=== PATIENT | male | born 1945 | race Caucasian/White ===

== ENCOUNTER 2016-10-13 01:19 | Observation (INO) | payer BC ==
[2016-10-13] VITALS (9 sets, daily range): BP systolic 106–131; BP diastolic 57–88; PULSE 60–66; TEMP 36.6–37.1; O2SAT 94–96; Ht 167.6 cm; Wt 75.3 kg
[~2016-10-13] VITALS: Ht 167.6 cm; Wt 75.3 kg
[~2016-10-13 01:19] MED LIST: ASPI81TA28 PO; CIPR-255 PO; LIVALO PO; ROLAIDS PO; SILD100T PO; WARF5TAB7 PO
--- NOTE | 2016-10-13 01:45 | EMERGENCY ROOM VISIT NOTE ---
History Report prepared by Trip: Lluvia Smith Under the Supervision of: Dr. Shilo Lindsey M.D. First contact with patient: 01:31 Chief Complaint: FEVER Stated Complaint: CHILLS,FEVER,NAUSEA History of Present Illness The patient is a 71 year old male who presents to the Emergency Room with complaints of an intermittent fever that began a few days ago. The patient states that he goes from burning up one minute to being chilled the next minute. He states that he last took Tylenol around 1600. The patient states that he has an artificial heart valve, and states that he could not hear it this evening that alarmed him. He notes a history of atrial fibrillation, noting that he is on Coumadin. The patent states that he last had his INR checked last week and states that he recently missed one dosage of his Coumadin , so he doubled up one day. The patient denies any cough, runny nose, sore throat, urinary burning, or swelling to his legs. The patient's states that he had sick contacts that had gastritis a few weeks ago, but denies the patient having any similar symptoms. Source of History: patient, spouse/significant other () Onset: few days ago Position: other (global) Quality: other (fever) Timing: intermittent Associated Symptoms: + chills, No cough, No sorethroat, No urinary symptoms Note: Associated Symptoms: burning up Review of Systems See HPI for pertinent positives & negatives. A total of 10 systems reviewed and were otherwise negative. Past Medical & Surgical Medical Problems: (1) BPH (benign prostatic hypertrophy) with urinary obstruction (2) Heart valve problem Family History Diabetes mellitus FHx: cancer FHx: heart disease Hypertension Social History Smoking Status: Never Smoker Smokeless Tobacco Use: No Alcohol Use: none Marital Status: Housing Status: lives with significant other Occupation Status: retired Current/Historical Medications Scheduled Aspirin (Aspirin Ec), 81 MG PO QPM Sildenafil Citrate (Viagra), 100 MG PO PRN Warfarin Sod (Jantoven), 7.5 MG PO MWF Warfarin Sod (Jantoven), 5 MG PO sun,tue,thur,sat [Livalo], 4 MG PO QPM Allergies Coded Allergies: BEE STING (Verified Allergy, Unknown, LIP SWELLING (SITE OF BEE STING), 10/13/16) Physical Exam Vital Signs Date Time Temp Pulse Resp B/P Pulse Ox O2 Delivery O2 Flow Rate FiO2 10/13/16 02:12 73 18 106/59 10/13/16 02:06 68 10/13/16 01:25 37.2 72 18 144/85 93 Room Air Physical Exam GENERAL: Patient is anxious appearing, in no acute distress. HEENT: No acute trauma, normocephalic atraumatic, mucous membranes moist, no nasal congestion, no scleral icterus. NECK: No stridor, no adenopathy, no meningismus, trachea is midline. LUNGS: No dyspnea. Clear to auscultation and equal bilaterally. No wheeze, no rhonchi. HEART: Metallic click and an irregular heart beat. No murmurs, rubs, gallops appreciated. ABDOMEN: Soft, nontender, bowel sounds positive, no masses appreciated, no peritonitis. BACK: No midline tenderness, no CVA tenderness EXTREMITIES: Normal motion all extremities, no cyanosis, no edema. NEUROLOGIC: Alert and oriented, no acute motor or sensory deficits, no focal weakness, cranial nerves grossly intact. SKIN: No rash, no jaundice, no diaphoresis. Medical Decision & Procedures ER Provider Diagnostic Interpretation: X ray results are stated below per my interpretation: Chest: 1 view: No infiltrate, no effusion, normal cardiac border. Similar to previous chest x-ray. Laboratory Results 10/13/16 02:00 Red Blood Count 4.55, Mean Corpuscular Volume 89.2, Mean Corpuscular Hemoglobin 31.2, Mean Corpuscular Hemoglobin Concent 35.0, Mean Platelet Volume 10.4, Neutrophils (%) (Auto) 89.5, Lymphocytes (%) (Auto) 3.1, Monocytes (%) (Auto) 6.7, Eosinophils (%) (Auto) 0.3, Basophils (%) (Auto) 0.3, Neutrophils # (Auto) 6.94, Lymphocytes # (Auto) 0.24, Monocytes # (Auto) 0.52, Eosinophils # (Auto) 0.02, Basophils # (Auto) 0.02 10/13/16 02:00 Test 10/13/16 02:00 10/13/16 02:04 10/13/16 02:40 White Blood Count 7.75 K/uL (4.8-10.8) Red Blood Count 4.55 M/uL (4.7-6.1) Hemoglobin 14.2 g/dL (14.0-18.0) Hematocrit 40.6 % (42-52) Mean Corpuscular Volume 89.2 fL (80-100) Mean Corpuscular Hemoglobin 31.2 pg (25-34) Mean Corpuscular Hemoglobin Concent 35.0 g/dl (32-36) Platelet Count 228 K/uL (130-400) Mean Platelet Volume 10.4 fL (7.4-10.4) Neutrophils (%) (Auto) 89.5 % Lymphocytes (%) (Auto) 3.1 % Monocytes (%) (Auto) 6.7 % Eosinophils (%) (Auto) 0.3 % Basophils (%) (Auto) 0.3 % Neutrophils # (Auto) 6.94 K/uL (1.4-6.5) Lymphocytes # (Auto) 0.24 K/uL (1.2-3.4) Monocytes # (Auto) 0.52 K/uL (0.11-0.59) Eosinophils # (Auto) 0.02 K/uL (0-0.5) Basophils # (Auto) 0.02 K/uL (0-0.2) RDW Standard Deviation 43.6 fL (36.4-46.3) RDW Coefficient of Variation 13.4 % (11.5-14.5) Immature Granulocyte % (Auto) 0.1 % Immature Granulocyte # (Auto) 0.01 K/uL (0.00-0.02) Prothrombin Time 19.1 SECONDS (9.0-12.0) Prothromb Time International Ratio 1.7 (0.9-1.1) Activated Partial Thromboplast Time 36.6 SECONDS (21.0-31.0) Partial Thromboplastin Ratio 1.4 Anion Gap 12.0 mmol/L (3-11) Est Creatinine Clear Calc Drug Dose 52.4 ml/min Estimated GFR () 64.5 Estimated GFR (Non- 55.7 BUN/Creatinine Ratio 16.9 (10-20) Calcium Level 8.0 mg/dl (8.5-10.1) Magnesium Level 2.0 mg/dl (1.8-2.4) Total Bilirubin 0.5 mg/dl (0.2-1) Direct Bilirubin 0.1 mg/dl (0-0.2) Aspartate Amino Transf (AST/SGOT) 26 U/L (15-37) Alanine Aminotransferase (ALT/SGPT) 37 U/L (12-78) Alkaline Phosphatase 52 U/L (45-117) Total Creatine Kinase 127 U/L (39-308) Creatine Kinase MB 0.5 ng/ml (0.5-3.6) Creatine Kinase MB Ratio 0.4 (0-3.0) Troponin I 0.019 ng/ml (0-0.045) C-Reactive Protein 5.32 mg/dl (0-0.29) Total Protein 6.7 gm/dl (6.4-8.2) Albumin 3.4 gm/dl (3.4-5.0) Bedside Lactic Acid Venous 2.73 mmol/L (0.90-1.70) Urine Color YELLOW Urine Appearance CLEAR (CLEAR) Urine pH 5.0 (4.5-7.5) Urine Specific [place] 1.031 (1.000-1.030) Urine Protein TRACE (NEG) Urine Glucose (UA) 2+ (NEG) Urine Ketones TRACE (NEG) Urine Occult Blood 2+ (NEG) Urine Nitrite NEG (NEG) Urine Bilirubin NEG (NEG) Urine Urobilinogen NEG (NEG) Urine Leukocyte Esterase SMALL (NEG) Urine WBC (Auto) 10-30 /hpf (0-5) Urine RBC (Auto) 5-10 /hpf (0-4) Urine Hyaline Casts (Auto) 5-10 /lpf (0-5) Urine Epithelial Cells (Auto) 10-20 /lpf (0-5) Urine Bacteria (Auto) NEG (NEG) Laboratory results as reviewed by me. Medications Administered Medications (Trade) Dose Ordered Sig/Benjy Route Start Time Stop Time Status Last Admin Dose Admin Sodium Chloride (Nss 1000ml) 1,000 ml @ 999 mls/hr Q1H1M STAT IV 10/13/16 02:38 10/13/16 03:38 DC 10/13/16 02:59 999 MLS/HR Piperacillin Sod/ Tazobactam Sod (Zosyn Iv) 4.5 gm NOW STAT IV 10/13/16 03:06 10/13/16 03:07 DC 10/13/16 03:20 4.5 GM ECG Indication: other Rate (beats per minute): 75 Rhythm: sinus rhythm Findings: PAC, no acute ischemic change ED Course 0133: The patient was evaluated in room A3. A complete history and physical exam was performed. 0238: Ordered Sodium Chloride 1000 ml @ 999 mls/hr IV. 0303: I reevaluated the patient and he is resting comfortably. I discussed the exam findings with him and I discussed the treatment plan. He verbalized complete understanding and agreement. He is going to be evaluated for further treatment. 0306: Ordered Vancomycin HCl 1 gm IV, Zosyn IV 4.5 gm IV. 0307: I discussed the patients case with Master Cho. He is going to evaluate the patient for further treatment. Medical Decision Differential: Viral, Pharyngitis, Cellulitis, Pneumonia, Influenza, Meningitis, Sepsis, Bacteremia, UTI/Pyelonephritis, Endocrine, Toxicologic, amongst other pathologies entertained. 71 yr old male arrives for evaluation of rigors prior to arrival along with report of not being able to hear his aortic valve. Admits missing a dose of coumadin recently as well. Had TURP about one month ago though denies pelvic pain, urinary symptoms nor bowel symptoms. UA is very concerning for UTI. Abdomen is soft non-tender. He has elevated Lactic acid, CRP, and glucose consistent with early sepsis. Given 1 L NSS, though hold on full 30ml/kg as he has stable vitals. Empiric abx for uro-sepsis given. He furthermore has low INR and with decreased sound of valve there is obvious concern that it is clotted somewhat. No stroke symptoms. Will need to come in for further evaluation and treatment. Consults Time Called: [phone] Consulting Physician: Master Cho Returned Call: [phone] I discussed the patients case with Master Cho. He is going to evaluate the patient for further treatment. Impression Primary Impression: Sepsis Additional Impressions: Urinary tract infection Subtherapeutic international normalized ratio (INR) Scribe Attestation The scribe's documentation has been prepared under my direction and personally reviewed by me in its entirety. I confirm that the note above accurately reflects all work, treatment, procedures, and medical decision making performed by me. Departure Information Dispostion Being Evaluated By Hospitalist Red Hayden M.D. (PCP) Problem Qualifiers Primary Impression: Sepsis Sepsis type: sepsis due to unspecified organism Qualified Codes: A41.9 - Sepsis, unspecified organism Additional Impressions: Urinary tract infection Urinary tract infection type: site unspecified Hematuria presence: without hematuria Qualified Codes: N39.0 - Urinary tract infection, site not specified
[2016-10-13 02:25] LABS: BASO % 0.3 %; BASO ABS # 0.02 K/uL (0-0.2); COMPLETE YES; EOS % 0.3 %; HEMATOCRIT 40.6 % (42-52); IG% 0.1 %; LYMPH % 3.1 %; LYMPH ABS # 0.24 K/uL (1.2-3.4); MEAN CELL VOLUME 89.2 fL (80-100); MEAN CORPUSCULAR HEMOGLOBIN 31.2 pg (25-34); MEAN PLATELET VOLUME 10.4 fL (7.4-10.4); MONO % 6.7 %; NEUT % 89.5 %; PLATELET COUNT 228 K/uL (130-400); RED BLOOD COUNT 4.55 M/uL (4.7-6.1); WHITE BLOOD COUNT 7.75 K/uL (4.8-10.8)
[2016-10-13 02:38] LABS: INR 1.7 (0.9-1.1); PROTHROMBIN TIME (PATIENT) 19.1 SECONDS (9.0-12.0)
[2016-10-13] MEDS ORDERED: SODIUM CHLORIDE 0.9% 1000ML 1,000 ML IV STA (02:38)
[2016-10-13 02:48] LABS: BUN/CREATININE RATIO 16.9 (10-20); CREATININE 1.3 mg/dl (0.60-1.40); POTASSIUM 3.8 mmol/L (3.5-5.1)
[2016-10-13 02:54] LABS: CKMB/CK RATIO 0.4 (0-3.0)
[2016-10-13 02:57] LABS: URINE APPEARANCE CLEAR (CLEAR); URINE BILIRUBIN NEG (NEG); URINE COLOR YELLOW; URINE NITRITE NEG (NEG); URINE SPECIFIC GRAVITY 1.031 (1.000-1.030); UROBILINOGEN NEG (NEG); ZZUR CULT IF INDIC CLEAN CATCH YES
[2016-10-13 03:00] LABS: MANUAL MICROSCOPIC REQUIRED? NO; REVIEW REQ? NO
[2016-10-13] MEDS ORDERED: PIPERACILLIN/TAZOBACTAM 4.5 GM/100ML D5W IV STA (03:06)
[2016-10-13] MEDS ORDERED: VANCOMYCIN 1GM/270ML NSS IV STA (03:06)
[2016-10-13 03:08] LABS: C-REACTIVE PROTEIN 5.32 mg/dl (0-0.29)
[2016-10-13 03:46] LABS: PARTIAL THROMBOPLASTIN RATIO 1.4
[2016-10-13] MEDS ORDERED: WARFARIN SOD 5 MG TAB PO ONE (04:00)
[2016-10-13] MEDS ORDERED: NITROGLYCERIN 0.4 MG SL PER TAB CHARGE SL PRN (04:15)
[2016-10-13] MEDS ORDERED: MoRPHine SULFATE 4 MG/ML 1 ML CARP\\VIAL IV PRN (04:15)
[2016-10-13] MEDS ORDERED: LORAZEPAM 2 MG/ML 1 ML VIAL IV PRN (04:15)
[2016-10-13] MEDS ORDERED: ONDANSETRON INJ 2 MG/ML 2 ML VIAL IV PRN (04:15)
[2016-10-13] MEDS ORDERED: TRAMADOL HCL 50 MG TAB PO PRN (04:15)
[2016-10-13] MEDS ORDERED: ACETAMINOPHEN 325 MG TAB PO PRN (04:15)
[2016-10-13] MEDS ORDERED: CALCIUM GLUCONATE 10% 1,000 MG in SODIUM CHLORIDE 0.9% 50ML 50 ML IV STA (04:25)
[2016-10-13] MEDS ORDERED: HEPARIN IV LOW DOSE NO BOLUS SCH (04:25)
[2016-10-13] MEDS ORDERED: NSS + 20MEQ KCL 1000ML 1,000 ML IV ONE (04:30)
[2016-10-13] MEDS ORDERED: WARFARIN SOD 7.5 MG TAB PO STA (04:30)
[2016-10-13] MEDS ORDERED: LORAZEPAM INJ 0.5 MG in SYRINGE 0.75 ML IV PRN (04:45)
--- NOTE | 2016-10-13 05:41 | Progress Note ---
Internal Med Progress Note Date of Service: Oct 13, 2016. Provider Documentation: Made aware by RN of px request to transfer to [facility] service. Px anxious about px insurance paying for [facility] physician services. Case d/w Dr. Zhang ([facility] resident physician engineer conductor) who returned my page for Dr. Rios [facility] center medical director). Vital Signs: Date Time Temp Pulse Resp B/P Pulse Ox O2 Delivery O2 Flow Rate FiO2 10/13/16 05:47 36.8 64 18 106/57 94 Room Air 10/13/16 04:58 36.8 64 18 106/57 94 10/13/16 03:57 72 18 110/58 94 10/13/16 02:12 73 18 106/59 10/13/16 02:06 68 10/13/16 01:25 37.2 72 18 144/85 93 Room Air Lab Results: Results Past 24 Hours Test 10/13/16 02:00 10/13/16 02:04 10/13/16 02:40 10/13/16 05:18 Range/Units White Blood Count 7.75 4.8-10.8 K/uL Red Blood Count 4.55 4.7-6.1 M/uL Hemoglobin 14.2 14.0-18.0 g/dL Hematocrit 40.6 42-52 % Mean Corpuscular Volume 89.2 80-100 fL Mean Corpuscular Hemoglobin 31.2 25-34 pg Mean Corpuscular Hemoglobin Concent 35.0 32-36 g/dl Platelet Count 228 130-400 K/uL Mean Platelet Volume 10.4 7.4-10.4 fL Neutrophils (%) (Auto) 89.5 % Lymphocytes (%) (Auto) 3.1 % Monocytes (%) (Auto) 6.7 % Eosinophils (%) (Auto) 0.3 % Basophils (%) (Auto) 0.3 % Neutrophils # (Auto) 6.94 1.4-6.5 K/uL Lymphocytes # (Auto) 0.24 1.2-3.4 K/uL Monocytes # (Auto) 0.52 0.11-0.59 K/uL Eosinophils # (Auto) 0.02 0-0.5 K/uL Basophils # (Auto) 0.02 0-0.2 K/uL RDW Standard Deviation 43.6 36.4-46.3 fL RDW Coefficient of Variation 13.4 11.5-14.5 % Immature Granulocyte % (Auto) 0.1 % Immature Granulocyte # (Auto) 0.01 0.00-0.02 K/uL Prothrombin Time 19.1 9.0-12.0 SECONDS Prothromb Time International Ratio 1.7 0.9-1.1 Activated Partial Thromboplast Time 36.6 21.0-31.0 SECONDS Partial Thromboplastin Ratio 1.4 Sodium Level 138 136-145 mmol/L Potassium Level 3.8 3.5-5.1 mmol/L Chloride Level 103 98-107 mmol/L Carbon Dioxide Level 23 21-32 mmol/L Anion Gap 12.0 3-11 mmol/L Blood Urea Nitrogen 22 7-18 mg/dl Creatinine 1.30 0.60-1.40 mg/dl Est Creatinine Clear Calc Drug Dose 52.4 ml/min Estimated GFR () 64.5 Estimated GFR (Non- 55.7 BUN/Creatinine Ratio 16.9 10-20 Random Glucose 227 70-99 mg/dl Estimated Average Glucose 103 mg/dl Hemoglobin A1c 5.2 4.5-5.6 % Calcium Level 8.0 8.5-10.1 mg/dl Magnesium Level 2.0 1.8-2.4 mg/dl Total Bilirubin 0.5 0.2-1 mg/dl Direct Bilirubin 0.1 0-0.2 mg/dl Aspartate Amino Transf (AST/SGOT) 26 15-37 U/L Alanine Aminotransferase (ALT/SGPT) 37 12-78 U/L Alkaline Phosphatase 52 45-117 U/L Total Creatine Kinase 127 39-308 U/L Creatine Kinase MB 0.5 0.5-3.6 ng/ml Creatine Kinase MB Ratio 0.4 0-3.0 Troponin I 0.019 0-0.045 ng/ml C-Reactive Protein 5.32 0-0.29 mg/dl Total Protein 6.7 6.4-8.2 gm/dl Albumin 3.4 3.4-5.0 gm/dl Bedside Lactic Acid Venous 2.73 0.90-1.70 mmol/L Urine Color YELLOW Urine Appearance CLEAR CLEAR Urine pH 5.0 4.5-7.5 Urine Specific [place] 1.031 1.000-1.030 Urine Protein TRACE NEG Urine Glucose (UA) 2+ NEG Urine Ketones TRACE NEG Urine Occult Blood 2+ NEG Urine Nitrite NEG NEG Urine Bilirubin NEG NEG Urine Urobilinogen NEG NEG Urine Leukocyte Esterase SMALL NEG Urine WBC (Auto) 10-30 0-5 /hpf Urine RBC (Auto) 5-10 0-4 /hpf Urine Hyaline Casts (Auto) 5-10 0-5 /lpf Urine Epithelial Cells (Auto) 10-20 0-5 /lpf Urine Bacteria (Auto) NEG NEG Lactic Acid Level 1.0 0.4-2.0 mmol/L Microbiology Results 10/13/16 Blood Culture, Received Pending 10/13/16 Blood Culture, Received Pending 10/13/16 Urine Culture, Received Pending
[2016-10-13] MEDS ORDERED: IV FLUIDS COMPLETED PRN (05:45)
[2016-10-13] MEDS ORDERED: HEPARIN 25,000 UNIT/500ML D5W 500 ML IV PRN (05:45)
--- NOTE | 2016-10-13 06:19 | HISTORY & PHYSICAL EXAMINATION ---
DATE OF ADMISSION: 10/13/2016 PRIMARY CARE DOCTOR: Dr. Hammer. Hx obtained from px and records. CHIEF COMPLAINT: Fever. HISTORY OF PRESENT ILLNESS: Medical history significant for bicuspid aortic valve status post mechanical AVR , on Coumadin, CVA, BPH status post surgery. Recent confinement August 2016 for TURP for BPH under Urology service. In the last 2 weeks, the patient noted heartbeat going "up and down." In the last few days, patient noted intermittent fever and chills, fever 103 at one point. No chest pain, no shortness of breath. No cough symptoms. No bladder sx. "viral illness in the family" as per Last night, before he went to sleep, he noticed that he "could not hear his mechanical valve click as much." At the Emergency Room, px given Zosyn for possible sepsis. MEDICAL HISTORY: As above. SURGERIES: Aortic valve replacement, urologic procedure. HOME MEDICATIONS: Include aspirin, Coumadin, Livalo, Viagra. ALLERGIES: BEE STING. FAMILY HISTORY: Diabetes. PERSONAL AND SOCIAL HISTORY: Nonsmoker, no chronic intake of alcoholic beverages. REVIEW OF SYSTEMS: As per HPI, all other ROS negative. PHYSICAL EXAMINATION: VITAL SIGNS: Blood pressure was noted to be 105/69, pulse rate 70, RR 18, temp 37.2, sats 98 on room air. GENERAL: Noted to be slightly anxious, no respiratory distress. SKIN: Normal color. HEENT: [place] palpebral conjunctivae. Dry mucosa. NECK: No JVD. Supple. CHEST: Clear to auscultation. HEART: RRR, mechanical click noted. ABDOMEN: Soft, nontender. EXTREMITIES: No LE edema/tenderness noted. NEUROLOGIC: No gross focality. LABS: Hemoglobin was 14.3, hematocrit 40.6, white cell count 7.7, platelets 228. Sodium 136, potassium 3.8, chloride 103, CO2 of 23, BUN 22, creatinine 1.3, glucose of 227, POC lactic acid was 2.73. INR was 1.7. EKG normal sinus rhythm, septal infarct. T-wave flattening in the inferior leads. Chest x-ray, atelectasis. UA, trace protein, trace ketones, occult blood, wbcs positive, hyaline cast. epith cells ASSESSMENT: 1. Fever/chills at home possible etio : clinical dehydration viral illness ? complicated UTI (hx BPH sp surgery), patient denies urinary sx ? infective endocarditis (hx mechanical AVR, 2009; px worried about "usual valve clicK" being inaudible to him Patient is not septic. 2. History of bicuspid mechanical aortic valve on Coumadin. 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 hx CVA as per records. 4. Hyperglycemia, rule out diabetes. PLAN: Observation PCU mainly for heart valve concerns. 2D echo, Cardiology consult (Dr. Wu of [facility] [place] per patient request) RE mechanical AVR concerns IV heparin while INR subtx on Coumadin IVF, ff lactic acid Follow CS, IV ceftriaxone for possible UTI Check hemoglobin A1c. may need ISS pending result DVT prophylaxis. IV Heparin-Coumadin bridge tx Full code. MTDD
[2016-10-13 06:51] LABS: ESTIMATED AVERAGE GLUCOSE 103 mg/dl; HA1C FLAG Normal (Normal)
--- NOTE | 2016-10-13 06:55 | DIAGNOSTIC IMAGING REPORT ---
CHEST ONE VIEW PORTABLE CLINICAL HISTORY: fever COMPARISON STUDY: 08/16/2016 FINDINGS: The heart is borderline enlarged. There are postsurgical changes of a midline sternotomy and valvular replacement. There is no failure. There is no focal pulmonary consolidation. There are no pleural effusions.[ IMPRESSION: No active disease in the chest. Electronically signed by: Mayito Lemus M.D. 10/13/2016 6:53 AM Dictated Date/Time: 10/13/2016 6:53 AM
[2016-10-13] MEDS: CEFTRIAXONE SOD INJ 1 GM in DEXTROSE 5% ADD-VANTAGE 50ML 50 ML IV SCH (08:42)
--- NOTE | 2016-10-13 13:01 | Hospitalist Progress Note ---
Hospitalist Progress Note Date of Service Oct 13, 2016. Subjective Pt evaluation today including: conversation w/ patient, physical exam, chart review, lab review, review of studies, review of inpatient medication list Patient had no acute issues overnight Patient denies any fevers or chills Constitutional: No fever Eyes: No worsening of vision ENT: No hearing loss Respiratory: No cough, No shortness of breath Cardiovascular: No chest pain, No edema Abdomen: No constipation, No diarrhea, No pain, No vomiting Musculoskeletal: No joint pain Male : No dysuria Neurologic: No memory loss Psychiatric: No depression symptoms Heme: No abnormal bleeding/bruising Endo: No fatigue Medications Current Inpatient Medications Medications (Trade) Dose Ordered Sig/Benjy Route Start Time Stop Time Status Last Admin Dose Admin Warfarin Sodium 5 mg 5 mg DAILY@16 PO 10/14/16 16:00 11/13/16 15:59 Potassium Chloride/Sodium Chloride (Nss + 20meq KCl 1000ml) 1,000 ml @ 100 mls/hr Q10H ONCE IV 10/13/16 04:30 10/13/16 14:29 10/13/16 06:19 100 MLS/HR Acetaminophen (Tylenol Tab) 650 mg Q4H PRN PO 10/13/16 04:15 11/12/16 04:14 Nitroglycerin (Nitrostat Tab) 0.4 mg UD PRN SL 10/13/16 04:15 11/12/16 04:14 Ondansetron HCl (Zofran Inj) 4 mg Q6H PRN IV 10/13/16 04:15 11/12/16 04:14 Lorazepam (Ativan Inj) 0.5 mg Q4H PRN IV 10/13/16 04:15 11/12/16 04:14 Tramadol HCl (Ultram Tab) 25 mg Q6H PRN PO 10/13/16 04:15 11/12/16 04:14 Morphine Sulfate 4 mg 4 mg Q3H PRN IV 10/13/16 04:15 10/27/16 04:14 Ceftriaxone Sodium/Dextrose (Rocephin Inj/ Dextrose Add-[place] 50ML) 50 ml @ 100 mls/hr Q24H IV 10/13/16 08:00 10/23/16 07:59 10/13/16 08:42 100 MLS/HR Aspirin 81 mg 81 mg QPM PO 10/13/16 21:00 11/12/16 20:59 Lorazepam/Syringe (Ativan Inj/ Syringe) 1 ml @ 1 mls/min Q4H PRN IV 10/13/16 04:45 11/12/16 04:44 Miscellaneous 1 ea 1 ea PRN PRN N/A 10/13/16 05:45 10/13/17 05:44 Heparin Sodium/ Dextrose (Heparin 25,000 Unit/500ml D5W) 500 ml @ 17 mls/hr Q24H PRN IV 10/13/16 05:45 11/12/16 05:44 10/13/16 06:30 17 MLS/HR Miscellaneous Information (Order Awaiting Action) 1 ea QS N/A 10/13/16 08:00 11/12/16 07:59 Objective Vital Signs Date Time Temp Pulse Resp B/P Pulse Ox O2 Delivery O2 Flow Rate FiO2 10/13/16 11:26 36.6 60 16 113/71 94 Room Air 10/13/16 08:00 96 Room Air 10/13/16 07:30 37.1 63 16 106/63 96 Room Air 10/13/16 05:47 36.8 64 18 106/57 94 Room Air 10/13/16 04:58 36.8 64 18 106/57 94 10/13/16 03:57 72 18 110/58 94 10/13/16 02:12 73 18 106/59 10/13/16 02:06 68 10/13/16 01:25 37.2 72 18 144/85 93 Room Air Physical Exam General Appearance: WD/WN, no apparent distress Eyes: normal inspection ENT: normal ENT inspection Neck: supple Respiratory/Chest: chest non-tender, lungs clear Cardiovascular: regular rate, rhythm, no edema Abdomen: normal bowel sounds, non tender, soft Extremities: normal range of motion, non-tender Neurologic/Psychiatric: back tufter II-XII nml as tested, no motor/sensory deficits, alert, oriented x 3 Skin: normal color, warm/dry Lymphatic: no adenopathy Laboratory Results Last 24 Hours Test 10/13/16 02:00 10/13/16 02:04 10/13/16 02:40 10/13/16 05:18 White Blood Count 7.75 K/uL Red Blood Count 4.55 M/uL Hemoglobin 14.2 g/dL Hematocrit 40.6 % Mean Corpuscular Volume 89.2 fL Mean Corpuscular Hemoglobin 31.2 pg Mean Corpuscular Hemoglobin Concent 35.0 g/dl Platelet Count 228 K/uL Mean Platelet Volume 10.4 fL Neutrophils (%) (Auto) 89.5 % Lymphocytes (%) (Auto) 3.1 % Monocytes (%) (Auto) 6.7 % Eosinophils (%) (Auto) 0.3 % Basophils (%) (Auto) 0.3 % Neutrophils # (Auto) 6.94 K/uL Lymphocytes # (Auto) 0.24 K/uL Monocytes # (Auto) 0.52 K/uL Eosinophils # (Auto) 0.02 K/uL Basophils # (Auto) 0.02 K/uL RDW Standard Deviation 43.6 fL RDW Coefficient of Variation 13.4 % Immature Granulocyte % (Auto) 0.1 % Immature Granulocyte # (Auto) 0.01 K/uL Prothrombin Time 19.1 SECONDS Prothromb Time International Ratio 1.7 Activated Partial Thromboplast Time 36.6 SECONDS Partial Thromboplastin Ratio 1.4 Sodium Level 138 mmol/L Potassium Level 3.8 mmol/L Chloride Level 103 mmol/L Carbon Dioxide Level 23 mmol/L Anion Gap 12.0 mmol/L Blood Urea Nitrogen 22 mg/dl Creatinine 1.30 mg/dl Est Creatinine Clear Calc Drug Dose 52.4 ml/min Estimated GFR () 64.5 Estimated GFR (Non- 55.7 BUN/Creatinine Ratio 16.9 Random Glucose 227 mg/dl Estimated Average Glucose 103 mg/dl Hemoglobin A1c 5.2 % Calcium Level 8.0 mg/dl Magnesium Level 2.0 mg/dl Total Bilirubin 0.5 mg/dl Direct Bilirubin 0.1 mg/dl Aspartate Amino Transf (AST/SGOT) 26 U/L Alanine Aminotransferase (ALT/SGPT) 37 U/L Alkaline Phosphatase 52 U/L Total Creatine Kinase 127 U/L Creatine Kinase MB 0.5 ng/ml Creatine Kinase MB Ratio 0.4 Troponin I 0.019 ng/ml C-Reactive Protein 5.32 mg/dl Total Protein 6.7 gm/dl Albumin 3.4 gm/dl Bedside Lactic Acid Venous 2.73 mmol/L Urine Color YELLOW Urine Appearance CLEAR Urine pH 5.0 Urine Specific [place] 1.031 Urine Protein TRACE Urine Glucose (UA) 2+ Urine Ketones TRACE Urine Occult Blood 2+ Urine Nitrite NEG Urine Bilirubin NEG Urine Urobilinogen NEG Urine Leukocyte Esterase SMALL Urine WBC (Auto) 10-30 /hpf Urine RBC (Auto) 5-10 /hpf Urine Hyaline Casts (Auto) 5-10 /lpf Urine Epithelial Cells (Auto) 10-20 /lpf Urine Bacteria (Auto) NEG Lactic Acid Level 1.0 mmol/L Test 10/13/16 11:34 Activated Partial Thromboplast Time 51.3 SECONDS Partial Thromboplastin Ratio 2.0 Assessment and Plan Patient is a 71 y.o.M who presented to the hospital with fevers and chills Fevers - 2/2 to UTI? - blood and urine culture pending - cont IVF hydration ?UTI - continue ceftriaxone - await urine culture speciation Mechanical Aortic Valve replacement - INR subtherapeutic - start coumadin 7.5 mg/heparin drip - echocardiograph pending PPx- heparin Full Code
[2016-10-13] MEDS ORDERED: WARFARIN SOD 5 MG TAB PO SCH (16:00)
[2016-10-13] MEDS ORDERED: WARFARIN SOD 7.5 MG TAB PO SCH (16:00)
[2016-10-13 16:54] LABS: URINE APPEARANCE CLEAR (CLEAR); URINE BILIRUBIN NEG (NEG); URINE COLOR YELLOW; URINE EPITHELIAL CELL AUTO 0-5 /lpf (0-5); URINE NITRITE NEG (NEG); URINE PH 6.5 (4.5-7.5); URINE SPECIFIC GRAVITY 1.003 (1.000-1.030); UROBILINOGEN NEG (NEG)
[2016-10-13 16:55] LABS: MANUAL MICROSCOPIC REQUIRED? NO; REVIEW REQ? NO
[2016-10-13] MEDS ORDERED: LIVALO 4 MG PO SCH (21:00)
[2016-10-13] MEDS ORDERED: ASPIRIN 81 MG ECTAB PO SCH (21:00)
--- NOTE | 2016-10-14 00:32 | CARDIOLOGY CONSULTATION ---
DATE OF CONSULTATION: 10/13/2016 CONSULTATION REQUESTED BY: Dr. Wood. REASON FOR CONSULTATION: Fevers, chills, mechanical aortic valve. HISTORY OF PRESENT ILLNESS: Mr. Barrett is a very pleasant 71-year-old male with a history of a prior bicuspid aortic valve with severe aortic stenosis, status post mechanical aortic valve replacement ([employer] 25 mm at [facility] in 2008), minimal obstructive coronary artery disease and a prior TIA, who was admitted in the setting of 2-3 days of fevers and chills. Cardiology has been following the patient as an outpatient for years and is known to me from recent outpatient visits. The patient states that he had been in his usual state of health up until 3 days ago, and has not noticed any shortness of breath, productive cough, dysuria, diarrhea or any other new symptoms. Of note, patient 2-3 weeks ago underwent TURP for BPH with Dr. Palacios, and had been initially doing well until most recent febrile symptoms. Due to symptoms, he presented to the Emergency Department. In the ED, the patient was initially afebrile and hemodynamically stable, satting around 93% on room air. Initial lab work was remarkable for a normal white blood cell count, normal renal function, a UA that was grossly positive and otherwise unchanged EKG and cardiac markers. Of note, patient did endorse that he thought his click that he hears from his mechanical valve sounded different to him but no other new cardiac symptoms. PAST MEDICAL HISTORY: 1. History of bioprosthetic aortic valve with aortic stenosis, status post mechanical aortic valve replacement. 2. Mild nonobstructive coronary artery disease. 3. Chronic prostatitis, status post recent TURP. 4. GERD. 5. Gout. 6. Hypercholesterolemia. 7. Sinus bradycardia. FAMILY HISTORY: Mother had cardiac issues but no history of premature coronary artery disease or sudden cardiac . SOCIAL HISTORY: The patient is a former smoker. He is . Denies any significant alcohol or illicit drug use. HOME MEDICATIONS: Include phenazopyridine, Livalo, aspirin, Coumadin, doxycycline, Viagra. ALLERGIES: ALLERGIC TO BEE STINGS. REVIEW OF SYSTEMS: Ten-point review of systems completed and otherwise negative unless stated in HPI. PHYSICAL EXAMINATION: VITAL SIGNS: Temperature 36.8, pulse 64, blood pressure 106/57. GENERAL: The patient appears comfortable in no acute distress. HEENT: Sclerae are anicteric. Oropharynx clear. Mucous membranes are moist. NECK: Supple with no lymphadenopathy. LUNGS: Clear to auscultation bilaterally. CARDIAC: He has a crisp mechanical click with a 2/6 systolic ejection murmur heard best at left upper sternal border. No appreciable rubs or gallops. ABDOMEN: Soft, nontender, nondistended with positive bowel sounds. EXTREMITIES: Warm. He has no significant lower extremity edema, he has intact distal pulses. SKIN: Shows no rashes or lesions. NEUROLOGIC: Cranial nerves II-XII are grossly intact. PSYCHIATRIC: He is alert and oriented x3. LABORATORY DATA: White blood cell count 7.8, hemoglobin 14.2, platelets of 228. Neutrophils 89.5%. INR on presentation was 1.7. Sodium 138, potassium 3.8, BUN 22, creatinine of 1.3. A1c of 5.8. LFTs within normal limits. Troponin negative at 0.02. CRP was elevated at 5.32. Albumin was 3.4. UA showed a specific gravity of 1.031 and was positive for trace ketones, 2+ blood, small amount of leuk esterase was positive for white blood cells, red blood cells and epithelial cells. IMAGING: Chest x-ray showed no active acute cardiopulmonary processes. Prior cardiovascular studies: Echo in 12/2015 showed normal LV size, normal LV wall thickness, EF of 55%. He had normal transvalvular gradient across his aortic valve with a peak velocity of 1.35 and a peak gradient of 7.4. He had trace to mild AI. There was mild MR. His ascending aorta was borderline dilated at 3.8-4.1 cm. EKG on admission showed sinus rhythm with PACs and old septal infarct. No significant change from prior EKGs. IMPRESSION AND PLAN: 1. Febrile illness. 2. Possible urinary tract infection. 3. History of mechanical aortic valve replacement for severe aortic stenosis in the setting of bioprosthetic aortic valve. 4. Subtherapeutic INR. 5. Minimal nonobstructive coronary artery disease. The patient admitted with 2-3 days of fever in the setting of possible UTI, suggested by urinalysis. This occurred in the setting of recent TURP procedure. The patient is currently on IV antibiotics and urine culture and blood cultures are pending. From a cardiac standpoint, the patient endorsed some concern that the click of his valve sounded differently. On exam today, mechanical click is crisp but transthoracic echocardiogram is pending. Assuming valvular function is unchanged, no significant additional cardiac workup is necessary at this time. If significant abnormalities or blood work concerning for bacteremia, we will revisit the need for additional cardiac imaging. We will continue to follow while in hospital. Thank you for allowing us to participate in the care of this patient. Please contact with any questions. JEANMARIE
[2016-10-14 04:15] VITALS: BP 146/79; PULSE 67; TEMP 36.8; O2SAT 95
[2016-10-14 06:14] LABS: BASO % 0.4 %; BASO ABS # 0.03 K/uL (0-0.2); COMPLETE YES; EOS % 2.8 %; HEMATOCRIT 42.1 % (42-52); IG% 0.3 %; LYMPH % 15.5 %; MEAN CELL VOLUME 88.6 fL (80-100); MEAN CORPUSCULAR HEMOGLOBIN 30.7 pg (25-34); MEAN CORPUSCULAR HGB CONC 34.7 g/dl (32-36); MEAN PLATELET VOLUME 10.5 fL (7.4-10.4); MONO % 12.4 %; NEUT % 68.6 %; PLATELET COUNT 229 K/uL (130-400); RED BLOOD COUNT 4.75 M/uL (4.7-6.1)
[2016-10-14 06:30] LABS: INR 3.3 (0.9-1.1); PROTHROMBIN TIME (PATIENT) 36.7 SECONDS (9.0-12.0)
[2016-10-14 06:51] LABS: BUN/CREATININE RATIO 15.4 (10-20); CALCIUM 8.2 mg/dl (8.5-10.1); CREATININE 0.99 mg/dl (0.60-1.40); POTASSIUM 3.9 mmol/L (3.5-5.1)
[2016-10-14 07:15] VITALS: BP 153/75; PULSE 47; TEMP 36.9; O2SAT 96
[2016-10-14 08:00] VITALS: O2SAT 96
[2016-10-14] MEDS: CEFTRIAXONE SOD INJ 1 GM in DEXTROSE 5% ADD-VANTAGE 50ML 50 ML IV SCH (08:18)
[2016-10-14] MEDS ORDERED: PITAVASTATIN CALCIUM 4 MG TAB PO SCH (09:00)
[2016-10-14] MEDS ORDERED: CPR500 PO (09:22)
--- NOTE | 2016-10-14 09:23 | Discharge Instructions ---
Discharge Instructions Admission Admission Date: Oct 13, 2016 at 03:31 Admission Diagnosis: Heart Valve Problem. Discharge Care Plan - Problem: Medical Problems: (1) Sepsis (2) Subtherapeutic international normalized ratio (INR) (3) Urinary tract infection Care Plan - Goal(s): Decrease discomfort, Improve function Care Plan - Instructions: Activity Recommendations: no limitations Recommended Home Diet: AHA Phase I (2gmNa/LoCho) Provider Instructions: Please follow up with your PCP in 2-4 weeks Please follow up with your Urologist at next scheduled appointment VTE Core Measure Inpt VTE Proph given/why not?: Unfractionated heparin SQ Laboratory Results Test Results: Hemoglobin A1c Test 10/13/16 02:00 Range/Units Estimated Average Glucose 103 mg/dl Hemoglobin A1c 5.2 4.5-5.6 % Ricardo Baron Recommendations: Call your doctor if: * Temperature above 101 degrees * Pain not relieved by pain medicine ordered * There is increased drainage or redness from any incision * You have any unanswered questions or concerns. Your Doctors Instructions noted above were prepared by provider Sarah Wood.
[2016-10-14] MEDS ORDERED: CIPROFLOXACIN 500 MG TAB PO SCH (10:00)
[2016-10-14 12:00] VITALS: O2SAT 96
--- NOTE | 2016-10-14 13:36 | Discharge Summary ---
Discharge Summary Admission Date: Oct 13, 2016 at 03:31 Discharge Date: Oct 14, 2016 Discharge Disposition: Home Principal Diagnosis: UTI/Prstatitis Problems/Secondary Diagnoses: Hx AVR replacement BPH CVA Consultations: Cardiology Medication Reconciliation New Medications: Ciprofloxacin (Ciprofloxacin HCl) 500 Mg Tab 500 MG PO BID for 12 Days, #24 TAB Continued Medications: Aspirin (Aspirin Ec) 81 Mg Tab 81 MG PO QPM Sildenafil Citrate (Viagra) 100 Mg Tab 100 MG PO PRN, TAB Warfarin Sod (Jantoven) 5 Mg Tab 7.5 MG PO MWF, TAB Warfarin Sod (Jantoven) 5 Mg Tab 5 MG PO sun,tue,thur,sat [Livalo] () 4 MG PO QPM Discharge Exam Review of Systems: Constitutional: No chills Eyes: No worsening of vision ENT: No hearing loss Respiratory: No dyspnea on exertion, No sputum Cardiovascular: No chest pain Abdomen: No diarrhea, No pain, No vomiting Musculoskeletal: No joint pain Genitourinary - Female: No dysuria Genitourinary - Male: No dysuria, No hematuria Neurologic: No memory loss, No paralysis Physical Exam: General Appearance: WD/WN, no apparent distress Eyes: normal inspection, PERRL ENT: normal ENT inspection Neck: supple, no adenopathy Respiratory/Chest: chest non-tender, lungs clear Cardiovascular: regular rate, rhythm, no edema, + systolic murmur Abdomen / GI: normal bowel sounds, non tender, soft Extremities: normal inspection Neurologic/Psychiatric: manager custom II-XII nml as tested, no motor/sensory deficits , alert, oriented x 3 Skin: normal color, warm/dry, no rash Hospital Course Patient is a 71 y.o.M who presented to the hospital with fevers and chills for 1 -2 days prior. Patient also complained of not being able to "hear his heart valve anymore" Initial U/A showed signs of possible UTI. Patient admitted to the hospitalist service for UTI wiht Fevers - 2/2 to UTI? - blood culture NGTD and urine culture pending at time of discharged - afebrile during hospital stay ?UTI - continued ceftriaxone during and mission/ switched to ciprofloxacin on d/c - urine culture speciation pending at time of discharge Mechanical Aortic Valve replacement - INR subtherapeutic - continued on coumadin 7.5 mg/heparin drip - echocardiograph pending at time of admission pending. Echocardiograph no read at time of d/c however patient was afebrile with no leukocytosis showing no signs of volume overload. It as though that there was low likelihood of endocarditis and patient was discharged instructed to f/u with his PCP. PPx- heparin Full Code Total Time Spent: Greater than 30 minutes This includes examination of the patient, discharge planning, medication reconciliation, and communication with other providers. Discharge Instructions Please refer to the electronic Patient Visit Report (Discharge Instructions) for additional information. Additional Copies To Red Hammer M.D.; Joe Palacios M.D.
[2016-10-14 13:59] VITALS: BP 153/75; PULSE 47; TEMP 36.9; O2SAT 96
--- NOTE | 2016-10-14 15:10 | ECHOCARDIOGRAM REPORT ---
*NOTICE TO RECEIVING LIBERTARIAN AGENCY This information is strictly Confidential and protected under [place] law. [place] law prohibits you from making any further disclosure of this information unless further disclosure is expressly permitted by the written consent of the person to whom it pertains or is authorized by law. A general authorization for the release of medical or other information is not sufficient for this purpose. Hospital accepts no responsibility if the information is made available to any other person, INCLUDING THE PATIENT. Interpretation Summary * Name: SEVEN KIM Study Date: 10/14/2016 08:41 AM BP: 153/75 mmHg * Patient Location: [facility] HR: 73 * : 1945 (M/d/yyyy) Gender: Male Height: 66 in * Age: 71 yrs Ethnicity: CA Weight: 170 lb * Ordering Physician: Jericho Back * Referring Physician: Self, Referred * Performed By: Reina Funez RCS * * Reason For Study: VALVULAR HEART DISEASE * BSA: 1.9 m2 * -- Conclusions -- * The left ventricle is mildly dilated. * Left ventricular systolic function is moderately reduced. * Ejection Fraction = 40-45%. * There are regional wall motion abnormalities as specified. * Septal motion is consistent with conduction abnormality. * There is mild concentric left ventricular hypertrophy. * Diastolic dysfunction, Grade II (pseudonormalization pattern). * There is a bi-leaflet ([employer]) aortic mechanical prosthesis. * The gradient is normal for this prosthetic aortic valve. * There is mild mitral regurgitation. * There is mild tricuspid regurgitation. * Mild pulmonic valvular regurgitation. * PA end diastolic velocity of 1 m/s is consistent with normal PA end diastolic pressure. Procedure Details * A complete two-dimensional transthoracic echocardiogram was performed (2D, M-mode, Doppler and color flow Doppler). Left Ventricle * The left ventricle is mildly dilated. * There is mild concentric left ventricular hypertrophy. * Left ventricular systolic function is moderately reduced. * Ejection Fraction = 40-45%. * Septal motion is consistent with conduction abnormality. * There are regional wall motion abnormalities as specified. Right Ventricle * The right ventricle is borderline dilated. * The right ventricular systolic function is mild to moderately reduced. Atria * The left atrium is mildly dilated. * Right atrial size is normal. * The interatrial septum is intact with no evidence for an atrial septal defect. Mitral Valve * The mitral valve is normal in structure and function. * There is mild mitral regurgitation. Tricuspid Valve * The tricuspid valve is normal in structure and function. * There is mild tricuspid regurgitation. Aortic Valve * There is no significant aortic regurgitation. * There is a bi-leaflet ([employer]) aortic mechanical prosthesis. * The gradient is normal for this prosthetic aortic valve. Pulmonic Valve * The pulmonic valve is not well seen, but is grossly normal. * PA end diastolic velocity of 1 m/s is consistent with normal PA end diastolic pressure. * Mild pulmonic valvular regurgitation. Great Vessels * The aortic root is normal size. * Aortic arch of normal dimension. * No obvious dissection could be visualized. * The pulmonary artery is normal size. Pericardium/Pleural * There is no pericardial effusion. Left Ventricular Diastolic Function * Diastolic dysfunction, Grade II (pseudonormalization pattern). MMode 2D Measurements and Calculations IVSd 1.4 cm IVSs 1.6 cm LVIDd 5.1 cm LVIDs 4.2 cm LVPWd 1.2 cm LVPWs 1.4 cm IVS/LVPW 1.2 FS 17.4 % EDV(Teich) 124.7 ml ESV(Teich) 79.8 ml EF(Teich) 36.0 % EDV(cubed) 133.9 ml ESV(cubed) 75.5 ml EF(cubed) 43.6 % % IVS thick 17.0 % % LVPW thick 20.2 % LV mass(C)d 261.0 grams LV mass(C)dI 139.8 grams/m\S\2 LV mass(C)s 251.4 grams LV mass(C)sI 134.7 grams/m\S\2 SV(Teich) 44.9 ml SI(Teich) 24.1 ml/m\S\2 SV(cubed) 58.4 ml SI(cubed) 31.3 ml/m\S\2 LVOT diam 1.7 cm LVOT area 2.2 cm\S\2 LVAd ap4 36.4 cm\S\2 LVLd ap4 7.8 cm EDV(MOD-sp4) 138.5 ml EDV(sp4-el) 144.4 ml LVAs ap4 25.2 cm\S\2 LVLs ap4 7.2 cm ESV(MOD-sp4) 73.5 ml ESV(sp4-el) 75.0 ml EF(MOD-sp4) 46.9 % EF(sp4-el) 48.1 % LVAd ap2 37.3 cm\S\2 LVLd ap2 8.2 cm EDV(MOD-sp2) 136.8 ml EDV(sp2-el) 144.3 ml LVAs ap2 25.0 cm\S\2 LVLs ap2 7.1 cm ESV(MOD-sp2) 73.5 ml ESV(sp2-el) 74.5 ml EF(MOD-sp2) 46.3 % EF(sp2-el) 48.4 % LVLd %diff 4.6 % EDV(MOD-bp) 142.8 ml LVLs %diff -1.63 % ESV(MOD-bp) 73.6 ml EF(MOD-bp) 48.4 % SV(MOD-sp4) 65.0 ml SI(MOD-sp4) 34.8 ml/m\S\2 SV(MOD-sp2) 63.4 ml SI(MOD-sp2) 34.0 ml/m\S\2 SV(MOD-bp) 69.2 ml SI(MOD-bp) 37.1 ml/m\S\2 SV(sp4-el) 69.4 ml SI(sp4-el) 37.2 ml/m\S\2 SV(sp2-el) 69.9 ml SI(sp2-el) 37.4 ml/m\S\2 Doppler Measurements and Calculations MV E max gamaliel 94.4 cm/sec MV A max gamaliel 60.4 cm/sec MV E/A 1.6 MV P1/2t max gamaliel 85.9 cm/sec MV P1/2t 81.4 msec MVA(P1/2t) 2.7 cm\S\2 MV dec slope 309.3 cm/sec\S\2 MV dec time 0.19 sec Ao V2 max 169.5 cm/sec Ao max PG 11.5 mmHg Ao max PG (full) 8.8 mmHg ELVIN(V,A) 1.1 cm\S\2 ELVIN(V,D) 1.1 cm\S\2 LV V1 max PG 2.7 mmHg LV V1 max 82.5 cm/sec PA V2 max 96.5 cm/sec PA max PG 3.7 mmHg PI max gamaliel 148.3 cm/sec PI max PG 8.8 mmHg PI dec slope 71.6 cm/sec\S\2 PI P1/2t 606.3 msec
[2016-10-14] MEDS ORDERED: WARFARIN SOD 5 MG TAB PO SCH (16:00)
== END 2016-10-14 14:29 | disposition home or self-care (01) ==
LOC: ENRESERVTM → ENRESERVDT → C.EDB 01:21 → C.MED 03:31
PROVIDERS: ADMIT Internal Medicine; ATTEND Internal Medicine
DX: A41.9 Sepsis, unspecified organism (principal); N39.0 Urinary tract infection, site not specified; N41.9 Inflammatory disease of prostate, unspecified; R79.1 Abnormal coagulation profile; R73.9 Hyperglycemia, unspecified; I48.91 Unspecified atrial fibrillation; E78.00 Pure hypercholesterolemia, unspecified; K21.9 Gastro-esophageal reflux disease without esophagitis; Z79.01 Long term (current) use of anticoagulants; N40.0 Benign prostatic hyperplasia without lower urinary tract symptoms; Z91.030 Bee allergy status; Z95.2 Presence of prosthetic heart valve; Z79.82 Long term (current) use of aspirin; Z86.73 Personal history of transient ischemic attack (TIA), and cerebral infarction without residual deficits; Z87.891 Personal history of nicotine dependence; Z83.3 Family history of diabetes mellitus

== ENCOUNTER → 2016-11-01 | Outpatient (CLI) | payer BC ==
[~2016-11-01] MED LIST changes: -CIPR-255 PO; +CPR500 PO; -ROLAIDS PO
== END | disposition home or self-care (01) ==
LOC: C.LABSPEC 16:57
PROVIDERS: ATTEND Urology
DX: N40.1 Benign prostatic hyperplasia with lower urinary tract symptoms (principal); R31.29 Other microscopic hematuria